=== PATIENT | female | born 1975 | race Caucasian/White ===

== ENCOUNTER 2016-09-07 08:42 | Emergency (ER) | payer BC ==
[2016-09-07] MEDS ORDERED: predniSONE TAB* 20 MG PO ONE (10:53)
[2016-09-07] MEDS ORDERED: Albuterol 2.5 MG/3 ML NEB.SOL* (0.083%) INH ONE (10:53)
[2016-09-07] MEDS ORDERED: Ipratropium 0.5MG/2.5ML NEB* 0.5 MG/2.5 ML NEB.SOLN INH ONE (10:53)
[2016-09-07 12:44] VITALS: BP 99/59
--- NOTE | 2016-09-07 13:03 | UC ---
Noemy Shepard Salem, scribed for Suzie Siddiqui DO on 09/07/16 at 1058 . Asthma HPI - HPI Summary HPI Summary: Patient is a 40 y/o female who presents to the with a cough since 3 days ago. She reports a stuffy nose, scratchy throat, fatigue, and SOB, but denies sinus congestion, N/V, CP, dysuria, or nasal drainage. Pt also reports pressure from congestion and states that deep breaths aggravate her coughing. Pt has an inhaler to use on a per needed case, but she has been using it 4 times a day without significant relief. Pt has received steroids for her asthma in the past and she states that her current symptoms are similar to those she had then. She states that she typically gets seasonal allergies. Patients medication reviewed this visit. - History of Current Complaint Chief Complaint: UCAsthma Stated Complaint: SOB,ASTHMA Time Seen by Provider: 09/07/16 10:19 Hx Obtained From: Patient Hx Last Menstrual Period: 08/13/16 Onset/Duration: Gradual Onset, Lasting Days, Still Present Timing: Constant Initial Severity: Moderate Current Severity: Moderate Pain Intensity: 3 Pain Scale Used: 0-10 Numeric Location/Character: Cough (Nonproductive) Aggravating: Exertion - and recumbent position Alleviating: Nothing Associated Signs and Symptoms: Positive: Negative Related History: Similar Episode/Dx as - asthma - Risk Factors Status Asthmaticus Risk Factors: Negative - Allergy/Home Medications Allergies/Adverse Reactions: Allergies Allergy/AdvReac Type Severity Reaction Status Date / Time Latex Allergy Intermediate Swelling Verified 11/11/13 13:44 Penicillins Allergy Unknown Unknown Verified 11/11/13 06:45 Reaction Details Home Medications: Home Medications Control Patch 1 patch TOPICAL WEEKLY 09/07/16 [History Confirmed 09/07/16] Fluticasone HFA 110 mcg(NF) [Flovent HFA 110 mcg(NF)] 2 puff INH DAILY 09/07/16 [History Confirmed 09/07/16] Multiple Vitamin [Multi Vitamin] 1 tab PO DAILY 09/07/16 [History Confirmed 09/19] Vitamin D 1 drop SL DAILY 09/07/16 [History Confirmed 09/07/16] PMH/Surg Hx/FS Hx/Imm Hx Endocrine History Of: Reports: Diabetes - prediabetic prior to weight loss Denies: Thyroid Disease Cardiovascular History Of: Denies: Cardiac Disorders, Hypertension Respiratory History Of: Reports: Asthma Denies: COPD GI/ History Of: Denies: Ulcer Psychological History Of: Reports: Depression - Surgical History Surgical History: Yes Surgery Procedure, Year, and Place: Gastric bypass 2013. Right Leg Vein removal 07/20. Ear tubes. - Family History Known Family History: Positive: Hypertension, Diabetes Negative: Cardiac Disease - CAD >55 y/o. - Social History Alcohol Use: Rare Substance Use Type: None Smoking Status (MU): Former Smoker When Did the Patient Quit Smoking/Using Tobacco: 8 years dawit - Immunization History Most Recent Influenza Vaccination: season Review of Systems Constitutional: Fatigue ENT: Sore Throat - Scratchy throat., Other - Stuffy nose. Respiratory: Shortness Of Breath, Cough, Other - No sinus congestion. Cardiovascular: Negative Gastrointestinal: Negative Genitourinary: Negative All Other Systems Reviewed And Are Negative: Yes Physical Exam Triage Information Reviewed: Yes Appearance: Well-Appearing, No Pain Distress, Well-Nourished Vital Signs: Initial Vital Signs Temp 98.1 F 09/07/16 08:46 Pulse 88 09/07/16 08:46 Resp 18 09/07/16 08:46 BP 100/66 09/07/16 08:46 Pulse Ox 97 09/07/16 08:46 Vital Signs Reviewed: Yes Eyes: Positive: Conjunctiva Clear. Negative: Discharge ENT: Positive: Hearing grossly normal, TMs normal - TM highly scared, but neither red nor bulging., Other: - Nasal mucosa is pale and boggy. Allergic shiner.. Negative: Muffled/hoarse voice Neck: Positive: Supple, Nontender Respiratory: Positive: No respiratory distress, No accessory muscle use, Wheezing - Very tight wheezes, diffusely., Expiration - Prolonged. Cardiovascular: Positive: RRR, No Murmur Musculoskeletal Exam: Normal Neurological: Positive: Alert, Muscle Tone Normal Psychological: Positive: Normal Response To Family, Age Appropriate Behavior Skin Exam: Normal, Other - Warm, Dry, Normal color Diagnostics - EKG Cardiac Rate: NL - NSR @ [address] changes. Re-Evaluation - Re-Evaluation First Eval Re-Evaluation Time: 12:01 Change: Improved Comment: Significantly better air movement. Subjective decrease in sx. Asthma Course/Dx - Differential Dx/Diagnosis Differential Diagnosis/HQI/PQRI: Acute Asthma, Bronchitis, Reactive Airway Disease Provider Diagnoses: Cough. Asthma. Allergies. Discharge - Discharge Plan Condition: Stable Disposition: HOME Prescriptions: Albuterol HFA INHALER* [Ventolin HFA Inhaler*] 2 puff INH Q4H PRN #1 mdi PRN Reason: Sob/Wheezing Benzonatate CAP* [Tessalon 100 MG CAP*] 100 mg PO TID #30 cap guaiFENesin ER TAB [Mucinex*] 600 mg PO BID PRN #1 box PRN Reason: Cough guaiFENesin/CODIEN 100MG-10MG* [Robitussin AC 100Mg-10Mg*] 5 - 10 ml PO BEDTIME PRN #100 udc MDD 10ml PRN Reason: Cough predniSONE TAB* [Deltasone TAB*] 40 mg PO DAILY #8 tab Patient Education Materials: Asthma (ED), Allergies (ED), Acute Cough (ED) Referrals: No Primary Care Phys,NOPCP [Primary Care Provider] - Additional Instructions: TRY USING THE NETTI POT IN THE MORNINGS DISCUSSED. YOU MUST ALWAYS USE CLEAN WATER. INHALED BRONCHODILATORS: You have received a prescription for an inhaled bronchodilator -- a medication which stimulates the airways in the lung to dilate. This improves the flow of air in asthma, bronchitis, and emphysema. These medicines have some similarity to adrenaline, and can cause similar side effects: shakiness, racing heart, and a sense of nervousness. These side effects decrease with time. Contact your doctor if these side effects are severe. Do not over-use the medicine. Too-frequent use of the inhaler may make it ineffective. Call your doctor if the inhaler is not controlling your symptoms at the prescribed doses. COUGH-SUPPRESSANT & EXPECTORANT MEDICATION: You are to use a cough medication as needed for relief of symptoms. This medicine is a combination of an expectorant (to make the mucous thinner and more easily "coughed up") and a cough suppressant (to reduce the frequency of coughing). The cough-suppressant medicine is related to narcotics. You may experience mild nausea and sleepiness. Some patients who are very sensitive to narcotics may have stomach pain from this medicine. Taking the medicine with food reduces these side effects. Do not drive or work with machinery until you know how this medicine affects you. The expectorant should have no side effects. Iodine-containing expectorants (such as organidin) should not be taken by persons with active thyroid disease unless approved by your doctor. Call the doctor if you develop shortness of breath, hives, rash, itching, lightheadedness, or severe nausea and vomiting. EXPECTORANT MEDICATION: An expectorant medicine has been prescribed. This type of drug makes mucous thinner, helping the sinuses, nose, and bronchial tubes to remain free of pus and mucous. Expectorants make a cough less severe and more comfortable, and help infected sinuses drain. In general, antihistamines defeat the purpose of the expectorant by making mucous thicker. They should be avoided unless specifically recommended by your physician. TESSALON PERLES: You have received a prescription for Tessalon Perles (benzonatate). This is a non-narcotic medicine for relief of cough. It usually works in about 15- 20 minutes and lasts around four hours. Tessalon Perles should be swallowed. They should not be chewed or dissolved in the mouth (this can produce temporary numbing of the mouth and choking can occur). If you develop any adverse effects such as wheezing, shortness of breath, hives, rash, itching, or lightheadedness, please return at once. CORTICOSTEROID MEDICATION: You have been given a medicine of the cortisone class. This medication is used to control inflammation or allergy. It is usually only given for a short period of time, until the acute process subsides. There are usually no side effects from short-term use of cortisone-like medications. Some persons feel an increased sense of well-being and are not sleepy at bedtime. Long-term use of cortisone medications is best avoided, unless required for a severe condition. If your condition does not remit, or relapses after the course of corticosteroid medication, you should consult your physician. Contact the physician if you develop lightheadedness, black or tarry stools , swelling of the legs, or significant rapid change in weight. FOLLOW-UP CARE: You should establish with a private physician for follow-up care. If you are unable to get a timely appointment, or if you are worsening, call us or return for re-evaluation. An additional resource available to assist in finding the appropriate physician for your health care needs is the [facility]ician Referral Center. You may contact them by calling [phone]. The documentation as recorded by the Noemy camejo Salem accurately reflects the service I personally performed and the decisions made by me, Suzie Siddiqui DO.
== END 2016-09-07 12:22 | disposition home or self-care (01) ==
LOC: UCEAST 08:42
DX: J45.909 Unspecified asthma, uncomplicated (principal); E11.9 Type 2 diabetes mellitus without complications; R06.02 Shortness of breath; Z88.0 Allergy status to penicillin; Z91.040 Latex allergy status
CPT/HCPCS: 93005; 99212; G0463; J7512; J7644

== ENCOUNTER 2017-08-01 09:14 | Emergency (ER) | payer BC ==
[2017-08-01] MEDS ORDERED: Acetaminophen TAB* 325 MG PO ONE (10:07)
--- NOTE | 2017-08-01 10:38 | UC ---
Luis Alberto Shepard Nilda, scribed for Alie Gomez MD on 08/01/17 at 1009 . Complaint Female HPI - HPI Summary HPI Summary: This patient is a 41 year old F presenting to [facility] [place] accompanied by friend with a chief complaint of constant UTI-like symptoms. Pt states she was seen in [facility] [place] on 07/22/17, was Dx with UTI, and was placed on 7-day course of Bactrim. Pt notes Sx began to resolve though not completely, even after completing course of abx 2 days ago. Today pt states Sx suddenly worsened this morning while at work. Patient reports acute severe throbbing left lower back pain radiating to lower abd, urinary frequency, dysuria (pressure, pinching after urination), chills, and diarrhea (this morning). Patient denies urinary urgency , vaginal discharge, vaginal pruritus, and vaginal odor. The patient rates the pain 7/10 in severity. She has not taken anything for pain today. Medications include Prozac and control patch. Pt states allergies to Penicillin (hives ) and adverse reaction to Pyridium (vomiting). PMHx bladder infections often treated successfully with Cipro. She states her symptoms are similar to when she had a kidney stone in the past as a 29 y/o. She states she has issues with absorbing pills due to PSHx gastric bypass. Patients medication reviewed this visit. - History Of Current Complaint Stated Complaint: BACK PAIN,FREQUENT URINATION Hx Obtained From: Patient Hx Last Menstrual Period: 08/13/16 Onset/Duration: Sudden Onset, Lasting Weeks, Still Present Timing: Constant Severity Currently: Severe Pain Intensity: 7 Pain Scale Used: 0-10 Numeric Character: Not Applicable - throbbing Aggravating Factor(s): Urination Alleviating Factor(s): Nothing Associated Signs And Symptoms: Positive: Back Pain. Negative: Vaginal Discharge - Allergies/Home Medications Allergies/Adverse Reactions: Allergies Allergy/AdvReac Type Severity Reaction Status Date / Time latex Allergy Swelling Verified 08/01/17 09:21 Penicillins Allergy Hives Verified 08/01/17 09:23 Home Medications: Home Medications Cetirizine HCl [Allergy Relief] 10 mg PO ONCE PRN 08/01/17 [History Confirmed ] Norelgestromin/Ethin.estradiol [Xulane Patch] 1 each TD WEEKLY 08/01/17 [ History Confirmed 08/01/17] PMH/Surg Hx/FS Hx/Imm Hx Respiratory History: Asthma GI/ History: Kidney Stones, Other Other GI/ History: UTI Psychological History: Depression - Surgical History Surgical History: Yes Surgery Procedure, Year, and Place: Gastric bypass 2013. Right Leg Vein removal 07/20. Ear tubes. - Family History Known Family History: Positive: Hypertension, Diabetes Negative: Cardiac Disease - CAD >55 y/o. - Social History Alcohol Use: Rare Substance Use Type: None Smoking Status (MU): Former Smoker When Did the Patient Quit Smoking/Using Tobacco: 8 years dawit - Immunization History Most Recent Influenza Vaccination: season Review of Systems Constitutional: Chills Gastrointestinal: Abdominal Pain, Diarrhea Genitourinary: Dysuria, Frequency, Other - negative urinary urgency, vaginal discharge, vaginal pruritus, vaginal odor Musculoskeletal: Other: - left lower back pain All Other Systems Reviewed And Are Negative: Yes Physical Exam Triage Information Reviewed: Yes Appearance: Well-Appearing, Well-Nourished, Other: - mild discomfort Vital Signs: Initial Vital Signs Temp 99.1 F 08/01/17 09:27 Pulse 65 08/01/17 09:27 Resp 20 08/01/17 09:27 BP 98/47 08/01/17 09:27 Pulse Ox 100 08/01/17 09:27 Vital Signs Reviewed: Yes Eye Exam: Normal Eyes: Positive: Conjunctiva Clear ENT Exam: Normal ENT: Positive: Normal ENT inspection, Hearing grossly normal, Pharynx normal, TMs normal Dental Exam: Normal Neck exam: Normal Neck: Positive: Supple, Nontender, No Lymphadenopathy Respiratory Exam: Normal Respiratory: Positive: Chest non-tender, Lungs clear, Normal breath sounds, No respiratory distress, No accessory muscle use Cardiovascular Exam: Normal Cardiovascular: Positive: RRR, No Murmur, Pulses Normal Abdominal Exam: Normal Abdomen Description: Positive: Nontender, No Organomegaly, Soft. Negative: CVA Tenderness (R), CVA Tenderness (L), Distended Bowel Sounds: Positive: Present Musculoskeletal Exam: Normal Musculoskeletal: Positive: Strength Intact Neurological Exam: Normal Neurological: Positive: Alert Psychological Exam: Normal Skin Exam: Normal Diagnostics - Radiology CT Abd/Pel Radiology Interpretation Completed By: Radiologist - CT Abd/Pel, per radiologist , reveals MINOR LEFT-SIDED HYDRONEPHROSIS AND HYDROURETER WITH PROBABLE DISTAL URETERAL CALCULUS. Dr. Gomez has reviewed this radiology report. Bladder US Radiology Interpretation Completed By: Radiologist - Bladder US, per radiologist , reveals UNREMARKABLE ULTRASOUND OF THE BLADDER. BILATERAL URETERAL JETS ARE NOTED. 3 ML POST VOID RESIDUAL. Dr. Gomez has reviewed this radiology report. Re-Evaluation - Re-Evaluation First Eval Re-Evaluation Time: 11:13 Comment: Pt states back pain returning a little and that she needs to urinate. Pt made aware of plan for US and treatment. Second Eval Re-Evaluation Time: 11:44 Comment: Reviewed plan with pt. Pt declined narcotic. Pt agrees to see Hugo at 8:30 am tomorrow. Return precautions discussed. Complaint Female Dx - Course Course Of Treatment: [1106] Dr. Arias (urology) recommends US, blood work, and to begin Levaquin. If jet, Dr. Arias will see pt in office and 8:30 tomorrow. If no jet, pt goes to ED for admission. Pt made aware of plan. recommend levaquin 500mg daily - Differential Dx/Diagnosis Provider Diagnoses: renal colic. uti - Physician Notifications Discussed Patient Care With: Erick Arias - Urology Time Discussed With Above Provider: 11:06 Instructed by Provider To: Other - recommends US, blood work, and to begin Levaquin. If jet, Dr. Arias will see pt in office and 8:30 tomorrow. If no jet, pt goes to ED for admission. Pt made aware of plan. Discharge - Sign-Out/Discharge Documenting (check all that apply): Discharge - Discharge Plan Condition: Stable Disposition: HOME Prescriptions: Levofloxacin TAB* [Levaquin TAB*] 500 mg PO DAILY #9 tab Patient Education Materials: Urinary Tract Infection in Women (ED), Renal Colic (ED) Forms: *Work Release Referrals: Radha Henley MD [Primary Care Provider] - Erick Arias MD [Medical Doctor] - 1 Day (08/02/17 at 8:30am ) Additional Instructions: - stay well hydrated - drink plenty of non-alcoholic, non-caffinated beverages - Take Tylenol product every 6 hours for pain - take with food - Take antibiotics daily as prescribed - you were given first dose at urgent care - strain your urine - if you catch a stone, bring with you to your follow-up appointment - You have a follow-up appointment tomorrow morning at 8:30am with Dr. Arias- he is expecting you - It is strongly recommended you take yogurt and probiotics to help prevent diarrhea as discussed at urgent care - If you have uncontrolled pain, fevers, vomiting or other concerns you should go to the emergency department for further treatment and evaluation - Billing Disposition and Condition Condition: STABLE Disposition: HOME The documentation as recorded by the Luis Alberto camejo Nilda accurately reflects the service I personally performed and the decisions made by me, Alie Gomez MD.
--- NOTE | 2017-08-01 10:58 | RAD ---
INDICATION: Left flank pain COMPARISON: CT May 20, 2014 TECHNIQUE: Noncontrast axial source images were acquired from the level hemidiaphragms to the symphysis pubis as part of CT imaging for renal stone. Lung bases: The lung bases are clear. Liver: The liver is enlarged with findings of hepatic steatosis. Noncontrast imaging shows no evidence of a hepatic mass or ductal dilatation. Gallbladder: There are no calcified gallstones. There is no evidence of wall thickening or pericholecystic fluid.. Spleen: The spleen is normal in size. The noncontrast CT appearance is normal. Pancreas: Noncontrast imaging shows no pancreatic mass or ductal dilitation. Adrenal glands: No masses are identified. Kidneys/Bladder: There is minor left-sided hydronephrosis and hydroureter. There are multiple calcifications in the minor pelvis several of which are clearly phleboliths but one may represent a tiny left UVJ calculus. If this is within the urinary tract, the calculus would be in the 3 mm range. Noncontrast imaging shows no evidence of a renal mass. The bladder is unremarkable.. Adenopathy: There is no evidence of intraperitoneal or retroperitoneal adenopathy. Evaluation is limited without oral contrast. Fluid collections: There are no free or localized fluid collections. Vessels: The aorta and iliac vessels are normal in caliber. There are no significant atherosclerotic changes. The IVC appears normal Pelvic organs: The uterus and adnexa appear normal GI tract: Evaluation of the bowel is limited without oral contrast. The stomach, small bowel, and lower GI tract appear unchanged. There is bariatric surgery.. There are no obstructive findings. The appendix is visualized and appears normal. Soft tissues: No soft tissue abnormalities of the extraperitoneal abdomen or pelvis are identified. Osseous structures: There are no acute osseous findings. IMPRESSION: MINOR LEFT-SIDED HYDRONEPHROSIS AND HYDROURETER WITH PROBABLE DISTAL URETERAL CALCULUS.
[2017-08-01] MEDS ORDERED: Levofloxacin TAB* 500 MG PO ONE (11:32)
--- NOTE | 2017-08-01 11:45 | RAD ---
HISTORY: Left UVJ stone, evaluate left ureteral jet COMPARISONS: CT dated August 01, 2017 TECHNIQUE: Multiple transverse and longitudinal ultrasound images were obtained of the bladder using grayscale and color Doppler imaging. FINDINGS: BLADDER: The bladder is smooth in contour. Bilateral ureteral jets are identified. The prevoid bladder volume is 324 milliliters.. The postvoid bladder volume is 3 milliliters. IMPRESSION: UNREMARKABLE ULTRASOUND OF THE BLADDER. BILATERAL URETERAL JETS ARE NOTED. 3 ML POST VOID RESIDUAL
[2017-08-01 12:00] VITALS: BP 105/45
[2017-08-01 16:08] LABS: ABS Basophils 0.1 10^3/ul (0-0.2); ABS Eosinophils 0.1 10^3/ul (0-0.6); ABS Lymphocytes 1.7 10^3/ul (1.0-4.8); ABS Monocytes 0.4 10^3/ul (0-0.8); ABS Neutrophils 8.4 10^3/ul (1.5-7.7); ABS Nucleated RBC 0 10^3/ul; Eosinophil % 0.5 % (0-6); Hematocrit 34 % (35-47); Lymphocyte % 15.9 % (25-47); Mean Corpuscular HGB Conc 33 g/dl (31-36); Mean Corpuscular Hemoglobin 26 pg (27-31); Mean Corpuscular Volume 80 fL (80-97); Mean Platelet Volume 9.9 um3 (7.4-10.4); Nucleated Red Blood Cells % 0; Platelet Count 270 10^3/ul (150-450); Red Blood Count 4.21 10^6/ul (4.0-5.4); Red Cell Distribution Width 16 % (10.5-15); White Blood Count 10.6 10^3/ul (3.5-10.8)
[2017-08-01 16:18] LABS: EGFR Non-African American 81.8 (>60)
== END 2017-08-01 12:04 | disposition home or self-care (01) ==
LOC: UCEAST 09:14
DX: N23 Unspecified renal colic (principal); N39.0 Urinary tract infection, site not specified; J45.909 Unspecified asthma, uncomplicated; Z87.440 Personal history of urinary (tract) infections; Z87.442 Personal history of urinary calculi; F32.9 Major depressive disorder, single episode, unspecified; Z88.0 Allergy status to penicillin; Z91.040 Latex allergy status; Z87.891 Personal history of nicotine dependence
CPT/HCPCS: 36415; 74176; 76857; 80048; 81003; 85025; 87086; 99212; A9270-GY; G0463

== ENCOUNTER 2018-09-12 07:58 | Day surgery (SDC) | payer BC ==
[~2018-09-12 07:58] MED LIST: Buffered Lidocaine 1% SYRIN* 1 ML/SYRINGE INTRADERM ONE; Dexamethasone TAB* 4 MG PO ONE; DiMENhydriNATE IV* 50 MG/ML VIAL IV PUSH PRN; Famotidine IV* 10 MG/ML 2 ML (20 mg) IV ONE; Lactated Ringers 1000 ML Bag* 1,000 ML IV SCH; Levalbuterol 0.63MG/3ML NEB* UNIT OF USE INH ONE; Morphine 4 MG/ML VIAL (1 ml) 4 MG/ML VIAL IV PRN; Naloxone* 0.4 MG/ML 1 ML VIAL IV PRN; Ondansetron TAB* 4 MG PO ONE; PROCHLORPERAZINE INJ 5 MG/ML 2 ML VIAL IV PRN; Scopolamine 1.5 mg* PATCH TRANSDERM PRN; fentaNYL* 50 MCG/ML 2 ML VIAL (100 MCG VIAL) IV PRN; oxyCODONE/Acetamin 5/325 MG* TAB PO PRN
[2018-09-12] MEDS ORDERED: Ondansetron ODT TAB* 4 MG ONE (08:26)
[2018-09-12] MEDS ORDERED: Famotidine IV* 10 MG/ML 2 ML (20 mg) ONE (08:26)
[2018-09-12] MEDS ORDERED: Buffered Lidocaine 1% SYRIN* 1 ML/SYRINGE INTRADERM ONE (08:26)
[2018-09-12] MEDS ORDERED: Dexamethasone TAB* 4 MG ONE (08:26)
[2018-09-12] MEDS ORDERED: Acetaminophen TAB* 325 MG PO ONE (08:49)
[2018-09-12 08:57] LABS: Hematocrit 33 % (35-47); Hemoglobin 10.3 g/dL (12.0-16.0); Mean Corpuscular HGB Conc 31 g/dL (31-36); Mean Corpuscular Hemoglobin 23 pg (27-31); Mean Corpuscular Volume 72 fL (80-97); Mean Platelet Volume 9.2 fL (7.4-10.4); Platelet Count 245 10^3/uL (150-450); Red Blood Count 4.57 10^6 /uL (3.70-4.87); Red Cell Distribution Width 17 % (10.5-15); White Blood Count 7.7 10^3/uL (3.5-10.8)
[2018-09-12] MEDS ORDERED: Midazolam* 1 MG/ML 5 ML VIAL (5 MG) ONE (09:42)
[2018-09-12] MEDS ORDERED: fentaNYL* 50 MCG/ML 2 ML VIAL (100 MCG VIAL) ONE (09:42)
[2018-09-12] MEDS ORDERED: Ketorolac INJ* 30 MG/ML 1 ML VIAL ONE (11:08)
[2018-09-12] MEDS ORDERED: Lidocaine 2% PF * 5 ML VIAL ONE (11:08)
[2018-09-12] MEDS ORDERED: Ondansetron INJ* 2 MG/ML VIAL ONE (11:08)
[2018-09-12] MEDS ORDERED: Propofol* 10 MG/ML 20 ML BTL ONE (11:08)
[2018-09-12] MEDS ORDERED: Dexamethasone IV* 4 MG/ML 1 ML (4 MG) ONE (11:08)
[2018-09-12] MEDS ORDERED: DiMENhydriNATE IV* 50 MG/ML VIAL ONE (11:08)
[2018-09-12 11:48] VITALS: BP 105/64
--- NOTE | 2018-09-12 14:02 | OP ---
CC: [facility]* BRIEF OPERATIVE REPORT: DATE OF OPERATION: 09/12/18 - [facility] DATE OF : 77 SURGEON: Debbie Oleary MD. ANESTHESIOLOGIST: Dr. Pike. ANESTHESIA: General. PRE-OP DIAGNOSES: Menorrhagia, iron deficiency anemia. POST-OP DIAGNOSES: Menorrhagia, iron deficiency anemia. OPERATIVE PROCEDURE: Dilation hysteroscopy, curettage, NovaSure ablation. ESTIMATED BLOOD LOSS: Less than 20 cc. SPECIMENS: Endometrial curettings. FLUIDS: Per Anesthesia. DRAINS: None. FINDINGS: Small anteverted uterus, no adnexal masses were palpated. The uterus sounded to 8.5. The cervix measured 4.5 cm. The NovaSure cavity length was 4. The cavity width was 4.2. The time was 1 minute 12 seconds. The power was 92. There is a normal-appearing endometrial cavity. No polyps were seen. Both tubal ostia were visualized. Has excellent result when the hysteroscope was re- introduced. A good ablation throughout the endometrium. COUNTS: Sponge counts were correct x2. The patient tolerated the procedure well, was brought to recovery room, awake and in stable condition. DESCRIPTION OF PROCEDURE: The patient was brought to the operating room. When general endotracheal anesthesia was found to be adequate, the patient was prepped and draped in the usual sterile fashion in the dorsal lithotomy position. Time-out was performed. Exam under anesthesia was performed. A weighted speculum was placed in the vagina. The anterior lip of the cervix was grasped with a single- tooth tenaculum and the cervix was gently and easily dilated with graduated Hegar dilators. After the cervical length was determined to be 4.5 and the uterus sounded to 8.5, the hysteroscope was introduced with the above findings noted. The NovaSure was introduced, the cavity width was determined to be 4.2. The NovaSure was tested and the test was passed, so the NovaSure was enabled. The timing of the NovaSure was 1 minute 12 seconds. The NovaSure was easily removed. The hysteroscope was re- introduced, good ablation was noted throughout. The hysteroscope was removed. The single tooth tenaculum was removed from the anterior lip of the cervix. Excellent hemostasis was noted. All instruments were removed from the vagina. The patient tolerated the procedure well. Sponge, lap, and needle count were correct x2 and the patient was brought to recovery room awake and in stable condition. [id number]/[facility] #: [id number] MTDD
[2018-09-15] MEDS ORDERED: Scopolamine PATCH Remove* 1 NOTE MISC PATCH OFF ONE (05:58)
== END 2018-09-12 12:10 | disposition home or self-care (01) ==
LOC: OR 07:58
PROVIDERS: ATTEND Obstetrics & Gynecology
DX: N92.1 Excessive and frequent menstruation with irregular cycle (principal); D50.9 Iron deficiency anemia, unspecified; N84.0 Polyp of corpus uteri; Z88.0 Allergy status to penicillin; Z87.891 Personal history of nicotine dependence; F41.8 Other specified anxiety disorders; R73.03 Prediabetes
CPT/HCPCS: 36415; 81025; 85027; 86850; 86900; 86901; 88305; A9270-GY; J1100; J1240; J1885; J2250; J2405; J2704; J3010; J8540

== ENCOUNTER 2023-06-06 14:13 | Observation (INO) ==
[2023-06-06 16:45] LABS: ABS Basophils 0.1 10^3/uL (0.0-0.1); ABS Lymphocytes 1.9 10^3/uL (1.0-4.8); ABS Monocytes 0.5 10^3/uL (0.0-0.9); ABS Neutrophils 10.2 10^3/uL (1.5-7.6); Eosinophil % 0.1 %; Hematocrit 36.2 % (35-45); Hemoglobin 11.6 g/dL (11.5-14.3); Lymphocyte % 14.7 %; Mean Corpuscular Hemoglobin 25.2 pg (27-33); Mean Corpuscular Hgb Conc 32.1 g/dL (31-36); Mean Corpuscular Volume 78.4 fL (80-97); Mean Platelet Volume 9.7 fL (7.5-11.2); Platelet Count 231 10^3/uL (150-450); Red Blood Count 4.62 10^6/uL (3.63-4.92); Red Cell Distribution Width 16.7 % (12-17); White Blood Count 12.8 10^3/uL (3.8-11.8)
[2023-06-06 16:53] LABS: INR 0.99 (0.83-1.13)
[2023-06-06 17:02] LABS: Urine Appearance Clear; Urine Bilirubin Negative (Negative); Urine Blood Negative (Negative); Urine Color Yellow; Urine Glucose Negative (Negative); Urine Ketones 1+ (Negative); Urine Nitrite Negative (Negative); Urine Protein Negative (Negative); Urine Specific Gravity 1.027 (1.002-1.030); Urine Urobilinogen Negative (Negative)
[2023-06-06 17:07] LABS: ALT 14 U/L (7-52); AST 15 U/L (13-39); Albumin 4.3 g/dL (3.2-5.2); Albumin/Globulin Ratio 1.5 (1-3); Alkaline Phosphatase 88 U/L (35-149); Anion Gap 9 mmol/L (2-16); Blood Urea Nitrogen 18 mg/dL (6-24); C Reactive Protein 1.53 mg/L (<8.01); CO2 Carbon Dioxide 22 mmol/L (22-32); Calcium 8.9 mg/dL (8.6-10.3); Chloride 107 mmol/L (101-111); Creatinine, Serum 0.73 mg/dL (0.51-0.95); Globulin 2.9 g/dL (2-4); Glucose 105 mg/dL (70-100); Lipase 87 U/L (11.0-82.0); Sodium 138 mmol/L (135-145); Total Bilirubin 0.2 mg/dL (0.2-1.0); Total Protein 7.2 g/dL (6.4-8.9); eGFR CKD-EPI 102.6 (>60)
[2023-06-06 17:11] LABS: High Sens Troponin Baseline < 3 pg/mL (<15)
[2023-06-06 17:13] LABS: HCG Pregnancy < 0.60 mIU/mL
[2023-06-06] MEDS ORDERED: Morphine 2 MG/ML SYRINGE IV ONE ×2 (18:06→21:14)
[2023-06-06] MEDS ORDERED: Ondansetron 4 mg VIAL 2 MG/ML 2 ml VIAL IV ONE (18:07)
[2023-06-06] MEDS ORDERED: Ondansetron 4 mg VIAL 2 MG/ML 2 ml VIAL ONE (18:08)
[2023-06-06 18:29] LABS: High Sensitivity Troponin 1 Hr < 3 pg/mL (<15)
[2023-06-06] MEDS ORDERED: NS 0.9% 1000 ml BAG 1,000 ML IV ONE (21:14)
[2023-06-06 21:26] LABS: Magnesium 2.2 mg/dL (1.9-2.7)
[2023-06-06] MEDS ORDERED: HYDROmorphone 1 MG/1 ML SYRINGE IV SLOW PU PRN ×2 (21:42→21:48)
[2023-06-06] MEDS ORDERED: Ondansetron 4 mg VIAL 2 MG/ML 2 ml VIAL IV PRN (21:42)
[2023-06-06] MEDS ORDERED: oxyCODONE/Acetamin 5/325 mg TAB PO PRN (21:42)
[2023-06-06] MEDS ORDERED: Calcium Carb (TUMS) 500 mg CHEW TAB PO PRN (21:46)
[2023-06-06] MEDS ORDERED: Metoclopramide 5 MG/ML VIAL (10 mg) IV PRN (21:46)
[2023-06-06] MEDS: Lactated Ringers 1000 ml BAG 1,000 ML IV SCH (22:59)
[2023-06-07 06:24] LABS: ABS Basophils 0.1 10^3/uL (0.0-0.1); ABS Eosinophils 0.1 10^3/uL (0.0-0.5); ABS Lymphocytes 2.6 10^3/uL (1.0-4.8); ABS Monocytes 0.7 10^3/uL (0.0-0.9); ABS Neutrophils 5.1 10^3/uL (1.5-7.6); Eosinophil % 1.2 %; Hematocrit 30.1 % (35-45); Hemoglobin 9.8 g/dL (11.5-14.3); Lymphocyte % 30.4 %; Mean Corpuscular Hemoglobin 25.4 pg (27-33); Mean Corpuscular Hgb Conc 32.7 g/dL (31-36); Mean Corpuscular Volume 77.9 fL (80-97); Mean Platelet Volume 9.7 fL (7.5-11.2); Platelet Count 178 10^3/uL (150-450); Red Blood Count 3.86 10^6/uL (3.63-4.92); Red Cell Distribution Width 16.4 % (12-17); White Blood Count 8.6 10^3/uL (3.8-11.8)
[2023-06-07 06:42] LABS: Albumin 3.5 g/dL (3.2-5.2); Albumin/Globulin Ratio 1.6 (1-3); C Reactive Protein 2.13 mg/L (<8.01); Creatinine, Serum 0.6 mg/dL (0.51-0.95); Globulin 2.2 g/dL (2-4); Potassium 3.7 mmol/L (3.5-5.0); Total Bilirubin 0.3 mg/dL (0.2-1.0); Total Protein 5.7 g/dL (6.4-8.9)
[2023-06-07] MEDS: Lactated Ringers 1000 ml BAG 1,000 ML IV SCH (08:50)
[2023-06-07] MEDS ORDERED: Propofol 10 MG/ML 20 ML BTL ONE (13:39)
[2023-06-07] MEDS ORDERED: Midazolam 2 mg/2 ml VIAL 1 mg/ml 2 ml VIAL (2 mg) ONE (13:39)
[2023-06-07] MEDS ORDERED: Dexamethasone IV 4 MG/ML VIAL 1 ml VIAL ONE (13:39)
[2023-06-07] MEDS ORDERED: fentaNYL 250 mcg/5 ml 50 MCG/ML 5 ml VIAL (250 MCG) ONE (13:39)
[2023-06-07] MEDS ORDERED: Ondansetron 4 mg VIAL 2 MG/ML 2 ml VIAL ONE (13:39)
[2023-06-07] MEDS ORDERED: Lidocaine 2% PF 5 ML VIAL ONE (13:39)
[2023-06-07] MEDS ORDERED: Rocuronium 50 mg VIAL 10 mg/ml 5 ml VIAL (50 mg) ONE ×2 (13:39→15:28)
[2023-06-07] MEDS ORDERED: ceFAZolin 2 GM in NS PREMIX 2 GM/100 ML BAG IVPB ONE (14:00)
[2023-06-07] MEDS ORDERED: Lidocaine 1% w EPI 1:100,000 MDV 20 ML VIAL ONE (14:02)
[2023-06-07] MEDS ORDERED: Bupivacaine 0.25% SDV 30 ML ONE (14:02)
[2023-06-07] MEDS ORDERED: Clindamycin 900 MG/50 **NS BAG 900 MG/50 ML BAG ONE (14:03)
[2023-06-07] MEDS ORDERED: fentaNYL 100 mcg/2 ml 50 MCG/ML VIAL IV PRN (14:28)
[2023-06-07] MEDS ORDERED: Naloxone 0.4 mg VIAL 0.4 mg/ml 1 ml VIAL IV PRN (14:28)
[2023-06-07] MEDS ORDERED: Acetaminophen IV 1 GM/100ML 1,000 MG/100 ML BAG IV ONE (14:54)
[2023-06-07] MEDS ORDERED: Morphine 4 MG/ML VIAL (1 ml) ONE (16:24)
[2023-06-07] MEDS: Morphine 4 MG/ML VIAL (1 ml) IV PRN ×2 (16:28→16:42)
[2023-06-07 19:57] VITALS: BP 113/54
== END 2023-06-07 19:57 | disposition home or self-care (01) ==
LOC: ED 14:13 → EDHOLD 14:13 → SSU 06-07 07:22
PROVIDERS: ADMIT Surgery; ATTEND Surgery